=== PATIENT | female | born 1950 | race Caucasian/White ===

== ENCOUNTER 2021-05-24 19:36 | Emergency (ER) | payer MEDICARE ==
[2021-05-24] MEDS ORDERED: Oxymetazoline HCl 0.05% (30 ML BOT) ONE (20:14)
[2021-05-24] MEDS ORDERED: Amoxicillin/Potassium Clav 875 MG TAB ONE (20:16)
== END 2021-05-24 20:18 | disposition home or self-care (01) ==
LOC: NAV ERS 19:36
DX: J01.90 Acute sinusitis, unspecified (principal); E78.00 Pure hypercholesterolemia, unspecified; Z79.899 Other long term (current) drug therapy
CPT/HCPCS: 99283